=== PATIENT | female | born 1990 | race Caucasian/White ===

== ENCOUNTER 2018-08-26 23:33 | Emergency (ER) | payer OTHER ==
[~2018-08-26] VITALS: Wt 50.8 kg
[~2018-08-26 23:33] MED LIST: ATIVAN1 MG PO; BACTRIM DS 8001 TA1 PO; BACTRIM PEDIAT200 ML PO; CIPROFLOXACIN500 MG PO; CLARITIN-D 10 M1 T21 PO; CLEOCIN150 MG PO; GYNE-LOTRIMIN 31 KIT VG; KEFLEX500 MG PO; MACROBID100 M1 PO; MOTRIN600 MG PO; MOTRIN800 MG PO; NICOTINE TRANSD1 TDM TD; NKHM; NORCO 325 MG-51 TAB PO; PEN-VK500 MG PO; PERIDEX 480 ML480 ML PO; PHENERGAN W/ DE30 ML PO; PHENERGAN25 M1 PO; PREDNICOT10 MG PO; PYRIDIUM200 MG PO; ZOFRAN4 MG PO; Zofran4 MG PO
[2018-08-26] MEDS ORDERED: CLINDAMYCIN HC300 MG PO (23:59)
== END 2018-08-27 00:16 | disposition home or self-care (01) ==
LOC: ED 23:33
DX: L03.116 Cellulitis of left lower limb (principal); L53.8 Other specified erythematous conditions

== ENCOUNTER → 2021-01-10 | Outpatient (CLI) | payer OTHER ==
[~2021-01-10] MED LIST changes: +CLINDAMYCIN HC300 MG PO
== END | disposition home or self-care (01) ==
LOC: COVID19 15:36
PROVIDERS: ATTEND Family Medicine
DX: U07.1 COVID-19 (principal)

== ENCOUNTER → 2021-11-26 | Outpatient (CLI) | payer OTHER | END | disposition home or self-care (01) | LOC: LAB 13:59 | PROVIDERS: ATTEND Family Medicine | DX: Z32.01 Encounter for pregnancy test, result positive (principal) ==

== ENCOUNTER → 2021-11-28 | Outpatient (CLI) | payer OTHER | END | disposition home or self-care (01) | LOC: LAB 21:01 | PROVIDERS: ATTEND Family Medicine | DX: Z33.1 Pregnant state, incidental (principal) ==

== ENCOUNTER 2022-03-21 17:18 | Emergency (ER) | payer OTHER ==
[~2022-03-21] VITALS: Wt 54.9 kg
[2022-03-21 18:34] LABS: BASO % 0.3 % (0.0-1.0); EOS # 0.1 10*3/uL (0.0-0.4); HEMATOCRIT 32.6 % (37.0-47.0); LYMPH # 1.7 10*3/uL (1.3-4.4); LYMPH % 15.5 % (27.0-41.0); MEAN CELL VOLUME 96.4 fl (81.0-99.0); MEAN CORPUSCULAR HGB CONC 33.1 g/dl (33.0-37.0); MONO # 0.9 10*3/uL (0.1-1.0); MONO % 8.3 % (3.0-9.0); NEUT # 8.1 10*3/uL (2.3-7.9); NEUT % 74.4 % (47.0-73.0); PLATELET COUNT AUTOMATED 230 10*3/uL (130-400); RED BLOOD COUNT 3.38 10*6/uL (4.10-5.10); RED CELL DISTRI WIDTH 13.2 % (0-14.5); WHITE BLOOD COUNT 10.9 10*3/uL (4.8-10.8)
[2022-03-21 18:49] LABS: ALKALINE PHOSPHATASE 72 U/L (45-117); BUN 9 mg/dl (7-24); CHLORIDE 107 mmol/L (98-107); CREATININE 0.47 mg/dL (0.55-1.02); LIPASE 213 U/L (73-393); POTASSIUM 3.4 mmol/L (3.5-5.1); SGOT/AST 12 IU/L (3-35); SGPT/ALT 13 U/L (12-78); SODIUM 137 mmol/L (136-145); TOTAL PROTEIN 6.7 gm/dL (6.4-8.2)
[2022-03-21 19:09] LABS: ACT PARTIAL THROMBO TIME 26.4 SECONDS (20.0-32.1); INTERNATIONAL NORM RATIO 0.9 (2.0-3.5)
[2022-03-21 19:43] LABS: BILIRUBIN Negative (Negative); BLOOD Negative (Negative); CLARITY Turbid (Clear); COLOR Yellow (Yellow); GLUCOSE Negative (Negative); KETONE Negative (Negative); LEUKO ESTERASE 2+ (Negative); NITRITE Negative (Negative); PH 6.5 (4.5-8.0); SPECIFIC GRAVITY <= 1.005 (1.001-1.030); UROBILINOGEN 0.2 E.U./dl (0.0-1.0)
[2022-03-21 19:55] LABS: EPITHELIAL CELLS TNTC
== END 2022-03-21 21:42 | disposition home or self-care (01) ==
LOC: ED 17:18
PROVIDERS: Emergency Medicine
DX: R42 Dizziness and giddiness (principal); E87.6 Hypokalemia

== ENCOUNTER 2022-05-24 20:36 | Emergency (ER) | payer OTHER ==
[~2022-05-24] VITALS: Wt 59.9 kg
== END 2022-05-24 20:55 ==
LOC: ED 20:36
DX: O60.03 Preterm labor without delivery, third trimester (principal); Z79.2 Long term (current) use of antibiotics; Z86.14 Personal history of Methicillin resistant Staphylococcus aureus infection; Z3A.32 32 weeks gestation of pregnancy

== ENCOUNTER → 2022-07-12 | Outpatient (CLI) | payer OTHER | LOC: LAB 13:29 | PROVIDERS: ATTEND Family Medicine | DX: K52.9 Noninfective gastroenteritis and colitis, unspecified (principal) ==

== ENCOUNTER 2023-01-02 09:10 | Emergency (ER) | payer OTHER ==
[~2023-01-02] VITALS: Wt 47.6 kg
[2023-01-02] MEDS ORDERED: VIBRA-TAB100 MG PO (09:58)
== END 2023-01-02 10:20 | disposition home or self-care (01) ==
LOC: ED 09:10
DX: L03.114 Cellulitis of left upper limb (principal); Z88.0 Allergy status to penicillin